=== PATIENT | male | born 1995 | race Caucasian/White ===

== ENCOUNTER 2021-07-31 02:24 | Emergency (ER) | payer OTHER ==
[~2021-07-31] VITALS: Ht 175.3 cm; Wt 81.6 kg
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
[2021-07-31] MEDS ORDERED: LIDOCAINE 1%-EPI 1:100,000 20 ML VIAL ONE (02:50)
--- NOTE | 2021-07-31 03:15 | NUR ---
returned from ct
--- NOTE | 2021-07-31 04:00 | NUR ---
lapd at bedside
--- NOTE | 2021-07-31 04:44 | NUR ---
at bedside for procedure
[2021-07-31] MEDS ORDERED: AMOX-430 PO (04:52)
--- NOTE | 2021-07-31 04:55 | NUR ---
Patient discharged to home in stable condition. Written and verbal after care instructions given. Patient verbalizes understanding of instruction. RX given
[2021-07-31 04:56] VITALS: BP 135/89
[2021-07-31] MEDS ORDERED: AMOX/CLAVULANATE 875 MG TABLET ONE (04:57)
[2021-07-31] MEDS ORDERED: AMOX/CLAVULANATE 875 MG TABLET PO ONE (05:00)
== END 2021-07-31 05:09 | disposition home or self-care (01) ==
LOC: ER 02:30
DX: S02.32XA Fracture of orbital floor, left side, initial encounter for closed fracture (principal); S01.81XA Laceration without foreign body of other part of head, initial encounter; S01.412A Laceration without foreign body of left cheek and temporomandibular area, initial encounter; F10.129 Alcohol abuse with intoxication, unspecified; F17.200 Nicotine dependence, unspecified, uncomplicated; Z60.2 Problems related to living alone; Y08.89XA Assault by other specified means, initial encounter; Y93.89 Activity, other specified; Y92.89 Other specified places as the place of occurrence of the external cause; Y99.8 Other external cause status; Y90.9 Presence of alcohol in blood, level not specified
CPT/HCPCS: 12013; 70450; 70486; 72125; 99285; J3490